=== PATIENT | male | born 1990 | race Caucasian/White ===

== ENCOUNTER 2016-07-17 15:11 | Emergency (ER) | payer MEDICAID, OTHER ==
[~2016-07-17] VITALS: Ht 188 cm; Wt 68.0 kg
[2016-07-17 15:13] VITALS: BP 144/97
[2016-07-17] MEDS ORDERED: SODIUM CHLORIDE 0.9% 1,000 ML IV ONE (15:33)
[2016-07-17] MEDS ORDERED: MAALOX/HYOSCYAMINE/LIDOCAINE 45 ML BOTTLE PO ONE (16:00)
[2016-07-17] MEDS ORDERED: SODIUM CHLORIDE 0.9% 1,000ML IVBOLUS ONE (16:00)
[2016-07-17] MEDS ORDERED: ONDANSETRON 2MG/ML, 2ML IVPush ONE (16:00)
[2016-07-17] MEDS ORDERED: FAMOTIDINE 20 MG/2 ML IVP ONE (16:00)
== END 2016-07-17 15:52 | disposition left against medical advice (07) ==
LOC: ED 15:37
DX: R10.84 Generalized abdominal pain (principal); F19.90 Other psychoactive substance use, unspecified, uncomplicated; F15.10 Other stimulant abuse, uncomplicated; B19.20 Unspecified viral hepatitis C without hepatic coma
CPT/HCPCS: 99281

== ENCOUNTER 2017-03-12 12:41 | Observation (INO) | payer MEDICAID ==
[~2017-03-12] VITALS: Ht 188 cm; Wt 79.0 kg
[2017-03-12] MEDS ORDERED: PROP10TA PO (13:47)
[2017-03-12] MEDS ORDERED: MIRT15TA3 PO (13:47)
[2017-03-12] MEDS ORDERED: ARIP10TA33 PO (13:48)
[2017-03-12] MEDS ORDERED: GABA-827 PO (13:48)
[2017-03-12] MEDS ORDERED: BUSP5TAB2 PO (13:49)
[2017-03-12 14:02] LABS: HEMATOCRIT 48.1 % (39.2-51.8); HEMOGLOBIN 16.6 g/dL (13.7-18.0); WHITE BLOOD COUNT 8.8 x10^3/uL (3.4-10)
[2017-03-12 14:14] LABS: ACETAMINOPHEN < 2 mcg/mL (10-30); BLOOD UREA NITROGEN 15 mg/dL (7-18)
[2017-03-12] MEDS ORDERED: DOCUSATE 100 MG CAPSULE PO PRN (15:30)
[2017-03-12] MEDS ORDERED: LORazepam 1MG TABLET PO PRN (15:30)
[2017-03-12] MEDS ORDERED: DIPHENHYDRAMINE 50 MG CAPSULE PO PRN (15:30)
[2017-03-12] MEDS ORDERED: ZIPRASIDONE 20 MG INJ IM PRN (15:30)
[2017-03-12] MEDS ORDERED: ONDANSETRON ODT 4 MG PO PRN (15:30)
[2017-03-12] MEDS ORDERED: QUETIAPINE 25MG TABLET PO PRN (15:30)
[2017-03-12] MEDS ORDERED: ACETAMINOPHEN 325 MG TABLET PO PRN (15:30)
[2017-03-12] MEDS ORDERED: BENZTROPINE 1 MG TABLET PO PRN ×2 (15:30)
[2017-03-12 15:40] LABS: DAU SCREEN DISCLAIMER
[2017-03-12] MEDS ORDERED: GABAPENTIN 400 MG CAPSULE PO SCH (21:00)
[2017-03-12] MEDS ORDERED: BUSPIRONE 5 MG TABLET PO SCH (21:00)
[2017-03-12] MEDS ORDERED: PROPRANOLOL 10 MG TABLET PO SCH (21:00)
[2017-03-12 21:11] VITALS: BP 132/79
[2017-03-12] MEDS ORDERED: PROPRANOLOL 20 MG TABLET ONE (21:22)
[2017-03-13] MEDS ORDERED: ARIPIPRAZOLE 10 MG TABLET PO SCH (09:00)
[2017-03-13] MEDS ORDERED: MIRTAZAPINE 15 MG TABLET PO SCH (09:00)
[2017-03-13] MEDS ORDERED: MIRTAZAPINE 15 MG TAB.RAPDIS PO SCH (09:00)
== END 2017-03-12 22:10 ==
LOC: SUATTDRO 14:48 → ED 14:48 → EDIP 15:00 → 2N 16:37
PROVIDERS: ADMIT Internal Medicine; ATTEND Internal Medicine
DX: R45.851 Suicidal ideations (principal); G43.909 Migraine, unspecified, not intractable, without status migrainosus; F25.9 Schizoaffective disorder, unspecified; F41.0 Panic disorder [episodic paroxysmal anxiety]; F11.20 Opioid dependence, uncomplicated; F31.9 Bipolar disorder, unspecified; F22 Delusional disorders; F41.9 Anxiety disorder, unspecified
CPT/HCPCS: 36415; 80048; 80307; 80329; 82040; 85025; 99285; G0378; G0479; G0480

== ENCOUNTER 2017-05-08 20:42 | Emergency (ER) | payer MEDICAID ==
[~2017-05-08] VITALS: Ht 188 cm; Wt 81.8 kg
[~2017-05-08 20:42] MED LIST: ARIP10TA33 PO; BUSP5TAB2 PO; GABA-827 PO; MIRT15TA3 PO; PROP10TA PO
[2017-05-08 21:48] LABS: BASOPHILS # (AUTO) 0.03 x10^3/uL (0-0.1); BASOPHILS % (AUTO) 0 % (0-1); EOSINOPHILS # (AUTO) 0.31 x10^3/uL (0-0.4); EOSINOPHILS % (AUTO) 4 % (1-7); LYMPHOCYTES # (AUTO) 2.48 x10^3/uL (1-3.4); LYMPHOCYTES % (AUTO) 28 % (22-44); MD NO; MEAN CORPUSCULAR HEMOGLOBIN 30.8 pg (27.5-34.5); MEAN CORPUSCULAR HGB CONC 33.1 g/dL (33.2-36.2); MEAN PLATELET VOLUME 7.4 fL (7.4-10.4); MONOCYTES # (AUTO) 0.64 x10^3/uL (0.2-0.8); MONOCYTES % (AUTO) 7 % (2-9); NEUTROPHILS # (AUTO) 5.36 x10^3/uL (1.8-6.8); NEUTROPHILS % (AUTO) 61 % (42-75); PLATELET COUNT 246 x10^3/uL (130-400); RED BLOOD COUNT 5.51 x10^6/uL (4.38-5.82); RED CELL DISTRIBUTION WIDTH 13.1 % (9.4-14.8)
[2017-05-08 21:59] LABS: ALANINE AMINOTRANSFERASE 28 U/L (12-78); ALBUMIN 4.2 g/dL (3.4-5.0); ANION GAP 8 mmol/L (5-15); CALCIUM 8.7 mg/dL (8.5-10.1); CHLORIDE 101 mmol/L (98-107); CREATININE 0.86 mg/dL (0.7-1.3)
[2017-05-08 22:01] LABS: ALKALINE PHOSPHATASE 89 U/L (45-117); BILIRUBIN,TOTAL 0.4 mg/dL (0.2-1.0); TOTAL PROTEIN 8.4 g/dL (6.4-8.2)
[2017-05-08 22:04] LABS: ACETAMINOPHEN < 2 mcg/mL (10-30)
[2017-05-08 22:04] LABS: AMPHETAMINE SCREEN, URINE Positive (Negative); BARBITURATE SCREEN, URINE Negative (Negative); BENZODIAZEPINE SCREEN, URINE Positive (Negative); CANNABINOID SCREEN, URINE Negative (Negative); COCAINE SCREEN, URINE Negative (Negative); METHADONE SCREEN, URINE Negative (Negative); OPIATE SCREEN, URINE Positive (Negative)
[2017-05-08] MEDS ORDERED: CLON1TAB PO (22:06)
[2017-05-08] MEDS ORDERED: PARO10TA56 PO (22:07)
[2017-05-09] MEDS ORDERED: NICOTINE 21 MG/24 HR PATCH.TD24 TD ONE (00:30)
[2017-05-09] MEDS ORDERED: QUETIAPINE 100MG TABLET PO SCH (00:30)
[2017-05-09] MEDS: GABAPENTIN 300 MG CAPSULE PO SCH ×2 (00:30→07:42)
[2017-05-09] MEDS ORDERED: NICOTINE 21 MG/24 HR PATCH.TD24 ONE (01:05)
[2017-05-09] MEDS ORDERED: GABAPENTIN 300 MG CAPSULE ONE ×2 (01:05→07:24)
[2017-05-09] MEDS ORDERED: QUETIAPINE 100MG TABLET ONE (01:05)
[2017-05-09 07:54] VITALS: BP 130/85
[2017-05-09] MEDS ORDERED: CLON-364 PO (08:00)
== END 2017-05-09 12:35 ==
LOC: ED 23:35 → UNDOADMOB 05-09 00:20 → EDIP 05-09 00:20 → INTOOBSV 05-09 00:20 → ED 05-09 12:35
DX: R45.851 Suicidal ideations (principal); F32.1 Major depressive disorder, single episode, moderate; F13.129 Sedative, hypnotic or anxiolytic abuse with intoxication, unspecified; F15.129 Other stimulant abuse with intoxication, unspecified; F11.129 Opioid abuse with intoxication, unspecified; F25.9 Schizoaffective disorder, unspecified; G50.0 Trigeminal neuralgia
CPT/HCPCS: 36415; 80053; 80307; 80329; 85025; 99285; G0480

== ENCOUNTER 2017-09-05 14:07 | Emergency (ER) | payer MEDICAID ==
[~2017-09-05] VITALS: Ht 188 cm; Wt 78.2 kg
[~2017-09-05 14:07] MED LIST changes: +CLON-364 PO; +CLON1TAB PO; +PARO10TA56 PO
[2017-09-05] MEDS ORDERED: ACETAMINOPHEN 325 MG TABLET PO ONE (15:00)
[2017-09-05] MEDS ORDERED: BUPR150T73 PO (15:10)
[2017-09-05] MEDS ORDERED: BUPR1FIL3 PO (15:10)
[2017-09-05 15:11] LABS: ALANINE AMINOTRANSFERASE 20 U/L (12-78); ALBUMIN 3.8 g/dL (3.4-5.0); ANION GAP 4 mmol/L (5-15); CALCIUM 8.4 mg/dL (8.5-10.1); CHLORIDE 103 mmol/L (98-107); CREATININE 1.02 mg/dL (0.7-1.3)
[2017-09-05 15:14] LABS: ALKALINE PHOSPHATASE 102 U/L (45-117); BILIRUBIN,TOTAL 0.6 mg/dL (0.2-1.0); TOTAL PROTEIN 7.7 g/dL (6.4-8.2)
[2017-09-05 15:25] LABS: BASOPHILS # (AUTO) 0.02 x10^3/uL (0-0.1); BASOPHILS % (AUTO) 0 % (0-1); EOSINOPHILS # (AUTO) 0.09 x10^3/uL (0-0.4); EOSINOPHILS % (AUTO) 1 % (1-7); LYMPHOCYTES # (AUTO) 0.75 x10^3/uL (1-3.4); LYMPHOCYTES % (AUTO) 9 % (22-44); MD NO; MEAN CORPUSCULAR HEMOGLOBIN 30.9 pg (27.5-34.5); MEAN CORPUSCULAR HGB CONC 34.5 g/dL (33.2-36.2); MEAN CORPUSCULAR VOLUME 89.3 fL (81-97); MEAN PLATELET VOLUME 7.3 fL (7.4-10.4); MONOCYTES # (AUTO) 0.71 x10^3/uL (0.2-0.8); MONOCYTES % (AUTO) 9 % (2-9); NEUTROPHILS # (AUTO) 6.38 x10^3/uL (1.8-6.8); NEUTROPHILS % (AUTO) 80 % (42-75); PLATELET COUNT 181 x10^3/uL (130-400); RED BLOOD COUNT 4.93 x10^6/uL (4.38-5.82); RED CELL DISTRIBUTION WIDTH 13.1 % (9.4-14.8)
[2017-09-05 15:39] VITALS: BP 125/65
[2017-09-05] MEDS ORDERED: ACETAMINOPHEN 325 MG TABLET ONE (15:41)
== END 2017-09-05 16:25 | disposition home or self-care (01) ==
LOC: ED 16:00
DX: R51 Headache (principal); R07.89 Other chest pain; R42 Dizziness and giddiness; F17.200 Nicotine dependence, unspecified, uncomplicated; R06.4 Hyperventilation
CPT/HCPCS: 36415; 71045; 80053; 82962; 85025; 93005; 99285